=== PATIENT | male | born 2000 | race Caucasian/White ===

== ENCOUNTER 2021-09-15 18:31 | Emergency (ER) | payer OTHER ==
[~2021-09-15] VITALS: Ht 185 cm; Wt 117.0 kg
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
[2021-09-15 19:02] VITALS: BP 141/73
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
== END 2021-09-15 19:02 | disposition home or self-care (01) ==
LOC: ER FS 18:33
DX: S40.011A Contusion of right shoulder, initial encounter (principal); V89.2XXA Person injured in unspecified motor-vehicle accident, traffic, initial encounter
CPT/HCPCS: 73030